=== PATIENT | female | born 1975 | race Caucasian/White ===

== ENCOUNTER → 2019-12-29 | Outpatient (CLI) | payer BC ==
[~2019-12-29] MED LIST: CALC-586 PO; CETI10CA PO; LACT1CAP35 PO
[2019-12-29 15:55] LABS: BASOPHILS # (AUTO) 0.02 x10^3/uL (0-0.1); BASOPHILS % (AUTO) 0 % (0-1); EOSINOPHILS # (AUTO) 0.07 x10^3/uL (0-0.4); EOSINOPHILS % (AUTO) 1 % (1-7); LYMPHOCYTES # (AUTO) 1.85 x10^3/uL (1-3.4); LYMPHOCYTES % (AUTO) 30 % (22-44); MD NO; MEAN CORPUSCULAR HEMOGLOBIN 32.2 pg (27.0-34.8); MEAN CORPUSCULAR HGB CONC 33.6 g/dL (32.4-35.8); MEAN CORPUSCULAR VOLUME 95.8 fL (80-100); MEAN PLATELET VOLUME 7.7 fL (7.4-10.4); MONOCYTES # (AUTO) 0.41 x10^3/uL (0.2-0.8); MONOCYTES % (AUTO) 7 % (2-9); NEUTROPHILS # (AUTO) 3.73 x10^3/uL (1.8-6.8); NEUTROPHILS % (AUTO) 61 % (42-75); PLATELET COUNT 269 x10^3/uL (130-400); RED BLOOD COUNT 3.97 x10^6/uL (3.82-5.3); RED CELL DISTRIBUTION WIDTH 12.6 % (9.6-15.2)
[2019-12-29 16:34] LABS: HCG UR SG 1.012 (1.003-1.030); MICROSCOPIC NOT IND
[2019-12-29 17:23] LABS: CULTURE INDICATED? NO
== END | disposition home or self-care (01) ==
LOC: STAR 14:39
PROVIDERS: ATTEND Obstetrics & Gynecology
DX: Z01.818 Encounter for other preprocedural examination (principal); N94.6 Dysmenorrhea, unspecified
CPT/HCPCS: 36415; 81003; 81025; 85025

== ENCOUNTER 2020-01-05 08:16 | Day surgery (SDC) | payer BC ==
[2019-12-29 15:46] VITALS: BP 100/66
[~2020-01-05] VITALS: Ht 172.7 cm; Wt 64.6 kg
[2020-01-05] MEDS ORDERED: FENTANYL PF 250 MCG/5ML ONE ×2 (09:04→11:36)
[2020-01-05] MEDS ORDERED: MIDAZOLAM 1 MG/ML, 2ML ONE (09:04)
[2020-01-05] MEDS ORDERED: LACTATED RINGERS 1,000 ML IV SCH (09:06)
[2020-01-05 09:09] LABS: HCG UR SG 1.007 (1.003-1.030)
[2020-01-05] MEDS ORDERED: LIDOCAINE-MPF 1%, 2ML ONE (09:17)
[2020-01-05] MEDS ORDERED: ACETAMINOPHEN 500 MG TABLET PO ONE (09:30)
[2020-01-05] MEDS ORDERED: CHLORHEXIDINE 15 ML UDC MM ONE (09:30)
[2020-01-05] MEDS ORDERED: GABAPENTIN 300 MG CAPSULE PO ONE (09:30)
[2020-01-05] MEDS ORDERED: BUPIVACAINE/PF-EPI 0.25% 1:200K ONE (10:10)
[2020-01-05] MEDS ORDERED: FLUORESCEIN SODIUM 500 MG/5 ML ONE (10:10)
[2020-01-05] MEDS ORDERED: PROPOFOL 50 ML ONE (10:28)
[2020-01-05] MEDS ORDERED: hydrALAzine 20 MG/ML, 1ML IV PRN (10:30)
[2020-01-05] MEDS ORDERED: HYDROmorphone 2 MG/ML, 1ML IVPush PRN (10:30)
[2020-01-05] MEDS ORDERED: MEPERIDINE/PF 25MG/ML,1ML IVPush PRN (10:30)
[2020-01-05] MEDS ORDERED: MORPHINE SULFATE 4 MG/ML, 1ML IVPush PRN (10:30)
[2020-01-05] MEDS ORDERED: PROMETHAZINE 25 MG/ML, 1ML IV PRN (10:30)
[2020-01-05] MEDS ORDERED: LABETALOL 5MG/ML, 20ML IV PRN (10:30)
[2020-01-05] MEDS ORDERED: HALOPERIDOL 5 MG/ML IV PRN (10:30)
[2020-01-05] MEDS ORDERED: FENTANYL PF 100 MCG/2ML IV PRN (10:30)
[2020-01-05] MEDS ORDERED: OXYcodone 5 MG/5 ML ORAL.SOL UDC PO PRN (10:30)
[2020-01-05] MEDS ORDERED: GLYCOPYRROLATE 0.2MG/1ML, 5ML ONE (10:45)
[2020-01-05] MEDS ORDERED: CEFAZOLIN 1,000 MG ONE (10:45)
[2020-01-05] MEDS ORDERED: DEXAMETHASONE 4 MG/ML, 1ML ONE (10:45)
[2020-01-05] MEDS ORDERED: NEOSTIGMINE 1 MG/ML, 10ML ONE (10:45)
[2020-01-05] MEDS ORDERED: ONDANSETRON 2MG/ML, 2ML ONE (10:45)
[2020-01-05] MEDS ORDERED: ROCURONIUM 10 MG/ML,10ML ONE (10:45)
[2020-01-05] MEDS ORDERED: PROPOFOL 10 MG/ML, 20ML ONE (10:45)
[2020-01-05] MEDS ORDERED: MEPERIDINE/PF 50 MG/ML ONE (12:41)
[2020-01-05] MEDS ORDERED: HYDROcodone/APAP 7.5-325MG/15ML UDC ONE (13:19)
[2020-01-05] MEDS ORDERED: HYDROcodone/APAP 7.5-325MG/15ML UDC PO PRN (13:30)
== END 2020-01-05 17:20 | disposition home or self-care (01) ==
LOC: OUT 08:16
PROVIDERS: ATTEND Obstetrics & Gynecology
DX: N94.6 Dysmenorrhea, unspecified (principal); N80.0 Endometriosis of uterus; D25.1 Intramural leiomyoma of uterus; N83.8 Other noninflammatory disorders of ovary, fallopian tube and broad ligament; N83.11 Corpus luteum cyst of right ovary; Z79.899 Other long term (current) drug therapy; Z88.2 Allergy status to sulfonamides; Z98.890 Other specified postprocedural states
CPT/HCPCS: 36415; 58552; 81025; 85014; 85018; 86850; 86900; 88307; J0690; J1100; J2175; J2250; J2405; J2704; J2710; J3010; U0001